=== PATIENT | female | born 1950 | race Caucasian/White ===

== ENCOUNTER 2021-08-16 06:57 | Outpatient (CLI) | payer MEDICARE, OTHER | END 2021-08-16 23:59 | disposition home or self-care (01) | LOC: LAB 06:57 | PROVIDERS: ATTEND Dermatology MOHS-Micrographic Surgery | DX: Z01.812 Encounter for preprocedural laboratory examination (principal); Z20.822 Contact with and (suspected) exposure to COVID-19 ==

== ENCOUNTER 2021-08-19 06:26 | Day surgery (SDC) | payer MEDICARE, OTHER ==
[2021-08-19] MEDS ORDERED: PROPOFOL 200 MG/20 ML BOTTLE IV ONE (06:27)
[2021-08-19] MEDS ORDERED: LIDOCAINE-MPF 2% 5 ML VIAL IJ ONE (06:27)
[2021-08-19] MEDS ORDERED: CYCLOPENTOLATE 1% OPHT DROP 2 ML BOTTLE ONE (06:48)
[2021-08-19] MEDS ORDERED: CIPROFLOXACIN 0.3% OPHT DROP 2.5 ML BOTTLE ONE (06:50)
[2021-08-19] MEDS ORDERED: KETOROLAC 0.5% OPHT DROP 3 ML BOTTLE ONE (06:50)
[2021-08-19] MEDS ORDERED: PHENYLEPHRINE 2.5% OPHT DROP 2 ML BOTTLE ONE (06:50)
[2021-08-19] MEDS ORDERED: TETRACAINE HCL 0.5% OPHT DROP 2 ML BOTTLE ONE ×2 (06:50→07:03)
[2021-08-19] MEDS ORDERED: PILOCARPINE 1% OPHT DROP 15 ML BOTTLE ONE (07:02)
[2021-08-19] MEDS ORDERED: NEO/POLYMYX B/DEXAME OPHT OINT 3.5 GM TUBE ONE ×2 (07:02→07:10)
[2021-08-19] MEDS ORDERED: EPINEPHRINE 1 MG/1 ML AMP ONE (07:03)
[2021-08-19] MEDS ORDERED: LIDOCAINE HCL-MPF 1% 5 ML VIAL ONE (07:03)
[2021-08-19] MEDS ORDERED: BALANCED SALT IRRIG SOLN COMB2 15 ML IRRIG.SOLN ONE (07:04)
[2021-08-19] MEDS ORDERED: BUPIVACAINE PF 0.5% 30 ML VIAL ONE (07:04)
[2021-08-19 07:05] LABS: HEMATOCRIT 37.4 % (31.2-41.9); MEAN CORPUSCULAR HEMOGLOBIN 30.4 uug (24.7-32.8); PLATELET COUNT (AUTO) 158 K/uL (179-408)
[2021-08-19 07:07] LABS: *BILIRUBIN,URIN NEGATIVE (NEGATIVE); *BLOOD, URINE 3+ (NEGATIVE); *CLARITY,URINE CLEAR (CLEAR); *COLOR,URINE YELLOW (YELLOW); *KETONES,URINE NEGATIVE (NEGATIVE); *UROBILINOGEN,URINE 0.2 E.U./dl (NORMAL); LEUKOCYTE ESTERASE ,URINE NEGATIVE (NEGATIVE); NITRITE, URINE NEGATIVE (NEGATIVE); PH,URINE 5.5 (5.0-8.0); UGLUCOSE NEGATIVE (NEGATIVE)
[2021-08-19] MEDS ORDERED: TRYPAN BLUE 0.5 ML DISP.SYRIN ONE (07:10)
[2021-08-19 07:14] LABS: CREATININE 0.9 mg/dL (0.6-1.3); POTASSIUM 3.8 mmol/L (3.5-5.1)
[2021-08-19 07:21] LABS: BACTERIA,URINE FEW /HPF (NONE SEEN); RBC,URINE 20-50 /HPF (0-3); SQUAMOUS EPITHELIAL CELL,UR FEW /HPF (NONE SEEN); WBC,URINE 0-3 /HPF (0-3)
[2021-08-19] MEDS ORDERED: FENTANYL CITRATE 100 MCG/2 ML AMPUL ONE (07:23)
[2021-08-19] MEDS ORDERED: BALANCED SALT IRRIG SOLN COMB1 0 ML ONE (07:59)
[2021-08-19] MEDS ORDERED: BALANCED SALT IRRIG SOLN COMB1 500 ML, EPINEPHRINE-PF 1:1000 0.5 MG IO ONE ×2 (11:00)
== END 2021-08-19 10:35 | disposition home or self-care (01) ==
LOC: DS 06:26
PROVIDERS: ATTEND Dermatology MOHS-Micrographic Surgery
DX: H25.89 Other age-related cataract (principal); I10 Essential (primary) hypertension; J45.909 Unspecified asthma, uncomplicated; Z85.3 Personal history of malignant neoplasm of breast; Z79.899 Other long term (current) drug therapy; Z98.890 Other specified postprocedural states
CPT/HCPCS: 36415; 71045; 85025; 85730; 93005; A4217; A4663; J0171; J3010; J3490; J3590; J7120; Q9968; V2632